=== PATIENT | male | born 1940 | race African-American/Black ===

== ENCOUNTER 2016-09-05 17:40 | Emergency (ER) | payer BC ==
[~2016-09-05] VITALS: Ht 175.3 cm; Wt 106.6 kg
[2016-09-05 18:55] VITALS: BP 154/72
--- NOTE | 2016-09-05 19:45 | ED.ADGEN ---
Past Medical History Past Medical History: CVA, High Cholesterol, Hypertension, Prostatitis, TIA, Other Additional Past Medical Histor: kidney disease Past Surgical History: Tonsillectomy, Other Additional Past Surgical Histo: fx arm Alcohol Use: Occasionally Drug Use: None Adult General Chief Complaint Chief Complaint: NOSEBLEED HPI HPI Patient is a 75 year old male with known coronary disease currently on Plavix who presents with intermittent right sided nosebleed for the past 5 hours. Bleeding is currently resolved. Patient has had head cold, nasal congestion with rhinorrhea and has been rubbing his nose the past 3 days. Blood pressure is controlled. Patient last took Plavix this morning. No other acute symptoms or complaints. No other bleeding complaints. Review of Systems Review of Systems Review symptoms as per history of present illness. All other review symptoms are negative. Allergies Allergies Allergies Coded Allergies Type Severity Reaction Last Updated Verified No Known Drug Allergies 09/19/14 No Physical Exam Physical Exam Constitutional: Well developed, well nourished. HENT: Normocephalic, atraumatic, bilateral external ears normal, oropharynx moist, no oral exudates, nose, no active bleeding, mucosal irritation, right nasal abrasion. Eyes: PERRL. Neck: Normal range of motion, no tenderness. Cardiovascular:Heart rate regular rhythm, no murmur. Lungs & Thorax: Bilateral breath sounds clear to auscultation. Abdomen: Bowel sounds normal, soft, no tenderness. Skin: Warm, dry. Back: No tenderness. Extremities: No tenderness. Neurologic: Alert and oriented X 3, normal motor function, normal sensory function, no focal deficits noted. Psychologic: Affect normal, judgement normal, mood normal. Current Patient Data Vital Signs Vital Signs Date Time Temp Pulse Resp B/P (MAP) Pulse Ox O2 Delivery O2 Flow Rate FiO2 09/05/16 18:55 78 17 154/72 (99) 09/05/16 18:25 94 Room Air 09/05/16 18:05 98.4 98.4 EKG EKG [] Radiology/Procedures Radiology/Procedures [] Course & Med Decision Making Course & Med Decision Making Pertinent Labs and Imaging studies reviewed. (See chart for details) [Nosebleed already resolved. Recommend supportive care and watchful waiting.] Dragon Disclaimer Dragon Disclaimer This electronic medical record was generated, in whole or in part, using a voice recognition dictation system. CATALINA LOPEZ DO Sep 05, 2016 19:44
--- NOTE | 2016-09-06 10:13 | EKG ---
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
== END 2016-09-05 19:15 | disposition home or self-care (01) ==
LOC: ER 17:40
DX: R04.0 Epistaxis (principal); R09.81 Nasal congestion; J34.89 Other specified disorders of nose and nasal sinuses; J00 Acute nasopharyngitis [common cold]; I25.10 Atherosclerotic heart disease of native coronary artery without angina pectoris; I10 Essential (primary) hypertension; E78.00 Pure hypercholesterolemia, unspecified; Z86.73 Personal history of transient ischemic attack (TIA), and cerebral infarction without residual deficits; Z79.02 Long term (current) use of antithrombotics/antiplatelets
CPT/HCPCS: 93005; 99284-25

== ENCOUNTER → 2016-09-05 | Outpatient (CLI) | payer BC ==
[~2016-09-05] MED LIST: AMLO10TA4 PO; AMLO5TAB4 PO; BYSTOLIC10 MG PO; CLOP75TA57 PO; FENO160T PO; FURO20TA3 PO; METO50TA2 PO; Metoprolol Tartrate PO; NICO1PAT21 TP; SIMV5TAB PO; TAMS0.4C2 PO
--- NOTE | 2016-09-05 15:47 | RAD ---
Indication renal dysfunction. Grayscale imaging targeted to the kidneys was performed. The right kidney measures 11.6 x 5.6 x 4.5 cm. No hydronephrosis or mass is seen. The left kidney appears unremarkable showing no evidence of hydronephrosis or mass measuring approximately 10.4 x 3.9 x 3.7 cm. The urinary bladder was not fully distended for this examination. No gross abnormality was seen. There was a small postvoid residual estimated at approximately 25 cc. IMPRESSION: Normal morphologic appearance of the kidneys
[2016-09-05 18:55] VITALS: BP 154/72
== END | disposition home or self-care (01) ==
LOC: US 14:29
PROVIDERS: ATTEND Internal Medicine Nephrology
DX: N18.3 Chronic kidney disease, stage 3 (moderate) (principal)
CPT/HCPCS: 76770

== ENCOUNTER → 2016-09-08 | Outpatient (CLI) | payer BC ==
[2016-09-05 18:55] VITALS: BP 154/72
--- NOTE | 2016-09-08 17:01 | CARD ---
APPROVED REPORT EXAM: Two-dimensional and M-mode echocardiogram with Doppler and color Doppler. Other Information Quality : AverageHR: 75bpm Rhythm : NSR INDICATION Chest Pain Lower extremity edema RISK FACTORS Obesity 2D DIMENSIONS RVDd2.9 (2.9-3.5cm)Left Atrium(2D)4.0 (1.6-4.0cm) IVSd1.0 (0.7-1.1cm)Aortic Root(2D)3.3 (2.0-3.7cm) LVDd4.8 (3.9-5.9cm)LVOT Diameter2.4 (1.8-2.4cm) PWd1.0 (0.7-1.1cm)LVDs3.4 (2.5-4.0cm) FS (%) 30.5 %SV62.8 ml LVEF(%)57.8 (>50%) Aortic Valve AoV Peak Ke[place].102.6cm/sAoV VTI23.2cm AO Peak GR.4.2mmHgLVOT Peak [place].90.3cm/s AO Mean GR.2mmHgAVA (VMAX)4.05cm2 Mitral Valve MV E Iccrnumy97.8cm/sMV E Peak Gr.2mmHg MV DECEL [id number] A Wbiouojv60.3cm/s MV E Mean Gr.1mmHgE/A Ratio0.8 MV A [id number] Pulmonary Valve PV Peak Cbwsdqrk81.6cm/s Pulmonary Vein S1 Oojncjiu42.6cm/sD2 Dihrofqw11.2cm/s PVa [id number] LEFT VENTRICLE The left ventricle is normal size. There is normal left ventricular wall thickness. The left ventricu lar systolic function is normal. The Ejection Fraction is 55-60%. There is normal LV segmental wall m otion. Transmitral Doppler flow pattern is Grade I-abnormal relaxation pattern. RIGHT VENTRICLE The right ventricle is normal size. There is normal right ventricular wall thickness. The right ventr icular systolic function is normal. ATRIA The left atrium size is normal. The right atrium size is normal. The interatrial septum is intact wit h no evidence for an atrial septal defect or patent foramen ovale as noted on 2-D or Doppler imaging. AORTIC VALVE The aortic valve is not well visualized but appears mildly calcified and opens well. Doppler and [place] r Flow revealed no significant aortic regurgitation. There is no significant aortic valvular stenosis . MITRAL VALVE The mitral valve is not well visualized but appears to open well. Mitral annular calcification is mil d. The mitral valve leaflets are thickened. There is no evidence of mitral valve prolapse. There is n o mitral valve stenosis. Doppler and Color Flow revealed trace mitral regurgitation. TRICUSPID VALVE The tricuspid valve is not well visualized. Doppler and Color Flow revealed no tricuspid valve regurg itation noted. Unable to determine pulmonary artery pressure at exam time. PULMONIC VALVE The pulmonary valve is not well visualized but appears to opens well. Doppler and Color Flow revealed no pulmonic valvular regurgitation. There is no pulmonic valvular stenosis by spectral Doppler. GREAT VESSELS The aortic root is normal in size. The ascending aorta is normal in size. The pulmonary artery is not visualized, unable to assess. The IVC is normal in size and collapses >50% with inspiration. PERICARDIAL EFFUSION There is no evidence of significant pericardial effusion. Critical Notification Critical Value: No <Conclusion> The left ventricular systolic function is normal. The Ejection Fraction is 55-60%. There is normal LV segmental wall motion. Transmitral Doppler flow pattern is Grade I-abnormal relaxation pattern. Doppler and Color Flow revealed trace mitral regurgitation. There is no evidence of significant pericardial effusion.
== END | disposition home or self-care (01) ==
LOC: ECHO 08:54
PROVIDERS: ATTEND Internal Medicine Cardiovascular Disease
DX: I34.0 Nonrheumatic mitral (valve) insufficiency (principal); E66.9 Obesity, unspecified; R60.0 Localized edema
CPT/HCPCS: 93306

== ENCOUNTER 2016-12-05 10:55 | Inpatient (IN) | payer BC ==
[~2016-12-05] VITALS: Ht 175.3 cm; Wt 108.0 kg
[~2016-12-05 10:55] MED LIST changes: -METO50TA2 PO; +METO50TA6 PO
[2016-12-05] MEDS ORDERED: ASPIRIN 325 MG TABLET PO ONE (11:15)
[2016-12-05] MEDS ORDERED: FUROSEMIDE 20 MG/2 ML VIAL. IV ONE (11:15)
--- NOTE | 2016-12-05 11:18 | PHYS DOC ---
Past Medical History Past Medical History: CVA, High Cholesterol, Hypertension, Prostatitis, TIA, Other Additional Past Medical Histor: kidney disease Past Surgical History: Tonsillectomy, Other Additional Past Surgical Histo: fx arm Alcohol Use: Occasionally Drug Use: None Adult General Chief Complaint Chief Complaint: LOWER EXTREMITY SWELLING HPI HPI Patient is a 76 year old male with a history of CVA (some residual left sided weakness), HTN, and COPD presents the ED complaining of shortness of breath 1 week. Patient sent to the ED by his PCP. Patient's states he has been sitting up, had increased leg swelling and sleeping in a chair due to difficulty breathing. Rates shortness of breath at 7/10. Complains of shortness of breath, cough, and lower leg swelling. Denies chest pain, headache, dizziness , weakness, nausea/vomiting, abdominal pain, syncope, or fever. States he has not taken his lasix at home this morning. Review of Systems Review of Systems Constitutional: Denies fever or chills [] Eyes: Denies change in visual acuity, redness, or eye pain [] HENT: Denies nasal congestion or sore throat [] Respiratory: Complains of cough and shortness of breath. [] Cardiovascular: No additional information not addressed in HPI [] GI: Denies abdominal pain, nausea, vomiting, bloody stools or diarrhea [] : Denies dysuria or hematuria [] Musculoskeletal: Denies back pain or joint pain [] Integument: Denies rash or skin lesions [] Neurologic: Denies headache, focal weakness or sensory changes [] Endocrine: Denies polyuria or polydipsia [] Current Medications Current Medications Current Medications Medications (Trade) Dose Ordered Sig/Otto Start Time Stop Time Status Last Admin Dose Admin Albuterol/ Ipratropium (Duoneb) 3 ml 1X ONCE 12/05/16 11:30 12/05/16 11:31 DC 12/05/16 12:02 3 ML Aspirin (Iris Aspirin) 325 mg 1X ONCE 12/05/16 11:15 12/05/16 11:16 DC 12/05/16 12:13 325 MG Furosemide (Lasix) 40 mg 1X ONCE 12/05/16 11:15 12/05/16 11:16 DC 12/05/16 12:30 40 MG Allergies Allergies Allergies Coded Allergies Type Severity Reaction Last Updated Verified No Known Drug Allergies 09/19/14 No Physical Exam Physical Exam Constitutional: Well developed, well nourished, no acute distress, non-toxic appearance. [] HENT: Normocephalic, atraumatic, bilateral external ears normal, oropharynx moist, no oral exudates, nose normal. [] Eyes: PERRLA, EOMI, conjunctiva normal, no discharge. [] Neck: Normal range of motion, no tenderness, supple, no stridor. [] Cardiovascular:Heart rate regular rhythm, no murmur [] Lungs & Thorax: Bilateral breath sounds. MILD WHEEZING/CRACKLES BILATERALLY. [] Abdomen: Bowel sounds normal, soft, no tenderness, no masses, no pulsatile masses. [] Skin: Warm, dry, no erythema, no rash. [] Back: No tenderness, no CVA tenderness. [] Extremities: No tenderness, no cyanosis, no clubbing, ROM intact, 2+ BILATERAL LOWER LEG EDEMA. LEFT LOWER LEG SUPERFICIAL BLISTER. [] Neurologic: Alert and oriented X 3, normal motor function, normal sensory function, no focal deficits noted. [] Psychologic: Affect normal, judgement normal, mood normal. [] Current Patient Data Vital Signs Vital Signs Date Time Temp Pulse Resp B/P (MAP) Pulse Ox O2 Delivery O2 Flow Rate FiO2 12/05/16 12:34 79 25 207/91 (129) 92 Nasal Cannula 2.0 12/05/16 11:20 98.7 98.7 Lab Values Laboratory Tests Test 12/05/16 12:30 White Blood Count 8.9 x10^3/uL (4.0-11.0) Red Blood Count 4.34 x10^6/uL (4.30-5.70) Hemoglobin 12.3 g/dL (13.0-17.5) L Hematocrit 38.5 % (39.0-53.0) L Mean Corpuscular Volume 89 fL (79-100) Mean Corpuscular Hemoglobin 28 pg (25-35) Mean Corpuscular Hemoglobin Concent 32 g/dL (31-37) Red Cell Distribution Width 14.6 % (11.5-14.5) H Platelet Count 243 x10^3/uL (140-400) Neutrophils (%) (Auto) 74 % (31-73) H Lymphocytes (%) (Auto) 13 % (24-48) L Monocytes (%) (Auto) 10 % (0-9) H Eosinophils (%) (Auto) 2 % (0-3) Basophils (%) (Auto) 1 % (0-3) Neutrophils # (Auto) 6.6 x10^3uL (1.8-7.7) Lymphocytes # (Auto) 1.2 x10^3/uL (1.0-4.8) Monocytes # (Auto) 0.9 x10^3/uL (0.0-1.1) Eosinophils # (Auto) 0.2 x10^3/uL (0.0-0.7) Basophils # (Auto) 0.1 x10^3/uL (0.0-0.2) Prothrombin Time 13.4 SEC (11.7-14.0) Prothrombin Time INR 1.1 (0.8-1.1) Sodium Level 145 mmol/L (136-145) Potassium Level 4.7 mmol/L (3.5-5.1) Chloride Level 108 mmol/L (98-107) H Carbon Dioxide Level 29 mmol/L (21-32) Anion Gap 8 (6-14) Blood Urea Nitrogen 24 mg/dL (8-26) Creatinine 1.6 mg/dL (0.7-1.3) H Estimated GFR (Cockcroft-Gault) 51.1 Glucose Level 108 mg/dL (70-99) H Calcium Level 9.0 mg/dL (8.5-10.1) Total Bilirubin 1.0 mg/dL (0.2-1.0) Direct Bilirubin 0.2 mg/dL (0.0-0.2) Aspartate Amino Transferase (AST) 13 U/L (15-37) L Alanine Aminotransferase (ALT) 19 U/L (16-63) Alkaline Phosphatase 96 U/L (46-116) Creatine Kinase 110 U/L (39-308) Creatine Kinase MB (Mass) 1.3 ng/mL (0.0-3.6) Creatine Kinase MB Relative Index 1.2 % (0-4) Troponin I Quantitative < 0.017 ng/mL (0.000-0.055) RY-Arx-G-Type Natriuretic Peptide 87 pg/mL (0-449) Total Protein 7.3 g/dL (6.4-8.2) Albumin 3.6 g/dL (3.4-5.0) Triglycerides Level 97 mg/dL (0-150) Cholesterol Level 85 mg/dL (0-200) LDL Cholesterol, Calculated 36 mg/dL (0-100) VLDL Cholesterol, Calculated 19 mg/dL (0-40) Non-HDL Cholesterol Calculated 55 mg/dL (0-129) HDL Cholesterol 30 mg/dL (40-60) L Cholesterol/HDL Ratio 2.8 Lipase 215 U/L (73-393) Thyroid Stimulating Hormone (TSH) 0.564 uIU/mL (0.358-3.74) Free Thyroxine 1.11 ng/dL (0.76-1.46) Free Triiodothyronine (T3) pg/mL 2.38 pg/mL (2.18-3.98) Laboratory Tests 12/05/16 12:30 Laboratory Tests 12/05/16 12:30 EKG EKG [] Radiology/Procedures Radiology/Procedures PROCEDURE: PORTABLE CHEST 1V Chest x-ray Indication: Short of breath, swelling and blisters on his legs. Technique: Portable AP upright chest x-ray Comparison: Previous chest x-ray from 05/24/2015 Findings: Heart is top normal in size. Mild diffuse peribronchial wall thickening. No pneumothorax or pleural effusion. Visualized bony thorax is within normal limits. Impression: Mild bilateral peribronchial wall thickening may suggest viral or atypical pneumonia. Clinically correlate.[] PROCEDURE: VENOUS LOWER EXT BILATERAL Ultrasound venous Doppler lower extremities Indication: Bilateral leg swelling Technique: Grayscale, Doppler and spectral waveform images of the bilateral lower extremity deep veins. Comparison: Previous study from 03/27/2015. Findings: The bilateral lower extremity deep veins are compressible and demonstrate respiratory variation with response to augmentation on Doppler images. Diffuse bilateral soft tissue edema. Impression: No sonographic evidence of acute DVT of the interrogated bilateral lower extremity deep veins. Course & Med Decision Making Course & Med Decision Making Pertinent Labs and Imaging studies reviewed. (See chart for details) []Discussed case with airport ramp supervisor PA for Dr. Ordonez and Dr. La, Data Processing Systems Project Planner. Will consult and see patient. Dr. Barnett agrees to admission and further management of patient. Patient stable for admission. Family at bedside. Dragon Disclaimer Dragon Disclaimer This electronic medical record was generated, in whole or in part, using a voice recognition dictation system. Departure Departure Impression: Primary Impression: COPD exacerbation Additional Impression: CAP (community acquired pneumonia) Disposition: 09 ADMITTED INPATIENT Admitting Physician: Roge Pierce Condition: STABLE Referrals: WILLA KING DO (PCP) Problem Qualifiers ZACK OZUNA Dec 05, 2016 11:18
--- NOTE | 2016-12-05 11:28 | EKG ---
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
[2016-12-05] MEDS ORDERED: IPRATRPIUM/ALBUTEROL 0.5/2.5MG 3 ML NEBU. NEB ONE (11:30)
--- NOTE | 2016-12-05 11:35 | RAD ---
Chest x-ray Indication: Short of breath, swelling and blisters on his legs. Technique: Portable AP upright chest x-ray Comparison: Previous chest x-ray from 05/24/2015 Findings: Heart is top normal in size. Mild diffuse peribronchial wall thickening. No pneumothorax or pleural effusion. Visualized bony thorax is within normal limits. Impression: Mild bilateral peribronchial wall thickening may suggest viral or atypical pneumonia. Clinically correlate.
--- NOTE | 2016-12-05 12:13 | RAD ---
Ultrasound venous Doppler lower extremities Indication: Bilateral leg swelling Technique: Grayscale, Doppler and spectral waveform images of the bilateral lower extremity deep veins. Comparison: Previous study from 03/27/2015. Findings: The bilateral lower extremity deep veins are compressible and demonstrate respiratory variation with response to augmentation on Doppler images. Diffuse bilateral soft tissue edema. Impression: No sonographic evidence of acute DVT of the interrogated bilateral lower extremity deep veins.
[2016-12-05 12:34] LABS: BASO # 0.1 x10^3/uL (0.0-0.2); BASO % 1 % (0-3); EOS % 2 % (0-3); HEMATOCRIT 38.5 % (39.0-53.0); HEMOGLOBIN 12.3 g/dL (13.0-17.5); LYMPH # 1.2 x10^3/uL (1.0-4.8); LYMPH % 13 % (24-48); MEAN CORPUSCULAR HEMOGLOBIN 28 pg (25-35); MEAN CORPUSCULAR HGB CONC 32 g/dL (31-37); MEAN CORPUSCULAR VOLUME 89 fL (79-100); MONO % 10 % (0-9); NEUT % 74 % (31-73); PLATELET COUNT 243 x10^3/uL (140-400); RED BLOOD COUNT 4.34 x10^6/uL (4.30-5.70); RED CELL DISTRIBUTION WIDTH 14.6 % (11.5-14.5); WHITE BLOOD COUNT 8.9 x10^3/uL (4.0-11.0)
[2016-12-05 12:48] LABS: INR 1.1 (0.8-1.1); PROTHROMBIN TIME PATIENT 13.4 SEC (11.7-14.0)
[2016-12-05 12:51] LABS: CREATININE 1.6 mg/dL (0.7-1.3); GFR 51.1; POTASSIUM 4.7 mmol/L (3.5-5.1)
[2016-12-05 12:57] LABS: CKMB MASS 1.3 ng/mL (0.0-3.6)
[2016-12-05 12:58] LABS: ALBUMIN 3.6 g/dL (3.4-5.0); DIRECT BILIRUBIN 0.2 mg/dL (0.0-0.2); TOTAL PROTEIN 7.3 g/dL (6.4-8.2)
[2016-12-05] MEDS ORDERED: DOXYCYCLINE HYCLATE 100 MG in IV DEXTROSE 5% 100 ML IV ONE (13:00)
[2016-12-05 13:15] LABS: BILIRUBIN,URINE NEGATIVE (NEG); GLUCOSE,URINE NEGATIVE (NEG); NITRITE,URINE NEGATIVE (NEG); PH,URINE 6.5; PROTEIN,URINE NEGATIVE (NEG-TRACE); UROBILINOGEN,URINE 0.2 mg/dL (0.2 mg/dL)
[2016-12-05 13:22] LABS: BACTERIA,URINE 0 /HPF (0-FEW); RBC,URINE 0 /HPF (0-2); SQUAMOUS EPITHELIAL CELL,UR OCC /LPF; WBC,URINE 0 /HPF (0-4)
[2016-12-05] MEDS ORDERED: LABETALOL 20 MG/4 ML DISP.SYRIN. IVP PRN (14:30)
--- NOTE | 2016-12-05 14:37 | PDOC2 ---
MARIELLA SHULTZ CHIEF CRNA 12/05/16 1437: CARDIAC CONSULT DATE OF CONSULT Date of Consult DATE: 12/05/16 TIME: 14:24 REASON FOR CONSULT Reason for Consult: CHF REFERRING PHYSICIAN Referring Physician: Teetee SOURCE Source: Chart review, Patient HISTORY OF PRESENT ILLNESS HISTORY OF PRESENT ILLNESS This is a pleasant 76 yo male admitted for complains of leg swelling and some SOA This SOA has been occurring for a 1 week. He has been sleeping sitting up but not necessarily SOA. Accdg to he has been able to lay flat without at home. He is just more comfortable when sitting up. Denies any CP, palpitations , n/v or diarrhea. Presently laying flat without difficulty. No fever or chills but explained that he has been coughing more. HE continues to smoke tobacco but otherwise he explained that he has been taking his BP meds. His leg swelling is persistent and his LLE is worse. HE has known PAD but has refused intervention in the past. There is a blister that popped to his left stover but no obvious nonhealing wound. He has weakness to his LE which makes it hard to figure if he truly is having activity claudication. Presently bilateral LE are warm and denies any discomfort. He is suppose to use stockings but has not been wearing it. He most likely have COPD and the only med he has is PRN albuterol. PAST MEDICAL HISTORY Cardiovascular: CHF, HTN, Hyperlipidemia, Other (PVD) Pulmonary: COPD CENTRAL NERVOUS SYSTEM: CVA Endocrine: Diabetes (?) PAST SURGICAL HISTORY Past Surgical History: No pertinent history FAMILY HISTORY Family History noncontributory SOCIAL HISTORY Smoke: <1 pack per day ALCOHOL: none Drugs: None Lives: with Family CURRENT MEDICATIONS CURRENT MEDICATIONS Current Medications Medications (Trade) Dose Ordered Sig/Otto Route PRN Reason Start Time Stop Time Status Last Admin Dose Admin Aspirin (Iris Aspirin) 325 mg 1X ONCE PO 12/05/16 11:15 12/05/16 11:16 DC 12/05/16 12:13 Furosemide (Lasix) 40 mg 1X ONCE IV 12/05/16 11:15 12/05/16 11:16 DC 12/05/16 12:30 Albuterol/ Ipratropium (Duoneb) 3 ml 1X ONCE NEB 12/05/16 11:30 12/05/16 11:31 DC 12/05/16 12:02 Ceftriaxone Sodium 50 ml @ 100 mls/hr 1X ONCE IV 12/05/16 13:00 12/05/16 13:29 DC 12/05/16 13:27 Doxycycline Hyclate 100 mg/ Dextrose 100 ml @ 50 mls/hr 1X ONCE IV 12/05/16 13:00 12/05/16 14:59 12/05/16 14:04 ALLERGIES ALLERGIES: Coded Allergies: No Known Drug Allergies (Unverified , 09/19/14) ROS Review of System 14 point ROS evaluated with pertinent positives noted per HPI PHYSICAL EXAM General: Alert, Oriented X3, Cooperative, No acute distress HEENT: Atraumatic, Mucous membr. moist/pink Lungs: Other (diminsihed bases) Heart: Regular rate (SR), Normal S1, Normal S2, Other (distant heart sounds) Abdomen: Soft, No tenderness Extremities: No cyanosis, Other (3-4+ bilateral LE pitting edema) Skin: No breakdown, No significant lesion Neuro: Normal speech, Sensation intact Psych/Mental Status: Mental status NL, Mood NL MUSCULOSKELETAL: Osteoarthritic changes both hands VITALS VITALS Vital Signs Date Time Temp Pulse Resp B/P (MAP) Pulse Ox O2 Delivery O2 Flow Rate FiO2 12/05/16 12:02 96 Room Air 12/05/16 11:20 98.7 73 24 206/86 (126) 98.7 LABS Lab: Laboratory Tests Test 12/05/16 12:30 12/05/16 13:05 White Blood Count 8.9 x10^3/uL (4.0-11.0) Red Blood Count 4.34 x10^6/uL (4.30-5.70) Hemoglobin 12.3 g/dL (13.0-17.5) Hematocrit 38.5 % (39.0-53.0) Mean Corpuscular Volume 89 fL (79-100) Mean Corpuscular Hemoglobin 28 pg (25-35) Mean Corpuscular Hemoglobin Concent 32 g/dL (31-37) Red Cell Distribution Width 14.6 % (11.5-14.5) Platelet Count 243 x10^3/uL (140-400) Neutrophils (%) (Auto) 74 % (31-73) Lymphocytes (%) (Auto) 13 % (24-48) Monocytes (%) (Auto) 10 % (0-9) Eosinophils (%) (Auto) 2 % (0-3) Basophils (%) (Auto) 1 % (0-3) Neutrophils # (Auto) 6.6 x10^3uL (1.8-7.7) Lymphocytes # (Auto) 1.2 x10^3/uL (1.0-4.8) Monocytes # (Auto) 0.9 x10^3/uL (0.0-1.1) Eosinophils # (Auto) 0.2 x10^3/uL (0.0-0.7) Basophils # (Auto) 0.1 x10^3/uL (0.0-0.2) Prothrombin Time 13.4 SEC (11.7-14.0) Prothromb Time International Ratio 1.1 (0.8-1.1) Sodium Level 145 mmol/L (136-145) Potassium Level 4.7 mmol/L (3.5-5.1) Chloride Level 108 mmol/L (98-107) Carbon Dioxide Level 29 mmol/L (21-32) Anion Gap 8 (6-14) Blood Urea Nitrogen 24 mg/dL (8-26) Creatinine 1.6 mg/dL (0.7-1.3) Estimated GFR (Cockcroft-Gault) 51.1 Glucose Level 108 mg/dL (70-99) Calcium Level 9.0 mg/dL (8.5-10.1) Total Bilirubin 1.0 mg/dL (0.2-1.0) Direct Bilirubin 0.2 mg/dL (0.0-0.2) Aspartate Amino Transf (AST/SGOT) 13 U/L (15-37) Alanine Aminotransferase (ALT/SGPT) 19 U/L (16-63) Alkaline Phosphatase 96 U/L (46-116) Creatine Kinase 110 U/L (39-308) Creatine Kinase MB (Mass) 1.3 ng/mL (0.0-3.6) Creatine Kinase MB Relative Index 1.2 % (0-4) Troponin I Quantitative < 0.017 ng/mL (0.000-0.055) KF-Mkk-T-Type Natriuretic Peptide 87 pg/mL (0-449) Total Protein 7.3 g/dL (6.4-8.2) Albumin 3.6 g/dL (3.4-5.0) Lipase 215 U/L (73-393) Urine Collection Type Unknown Urine Color Yellow Urine Clarity Cloudy Urine pH 6.5 Urine Specific [place] 1.010 Urine Protein Negative mg/dL (NEG-TRACE) Urine Glucose (UA) Negative mg/dL (NEG) Urine Ketones (Stick) Negative mg/dL (NEG) Urine Blood Negative (NEG) Urine Nitrite Negative (NEG) Urine Bilirubin Negative (NEG) Urine Urobilinogen Dipstick 0.2 mg/dL (0.2 mg/dL) Urine Leukocyte Esterase Negative (NEG) Urine RBC 0 /HPF (0-2) Urine WBC 0 /HPF (0-4) Urine Squamous Epithelial Cells Occ /LPF Urine Bacteria 0 /HPF (0-FEW) Urine Hyaline Casts Occasional /HPF ECHOCARDIOGRAM ECHOCARDIOGRAM Conclusion> The left ventricular systolic function is normal. The Ejection Fraction is 55-60%. There is normal LV segmental wall motion. Transmitral Doppler flow pattern is Grade I-abnormal relaxation pattern. Doppler and Color Flow revealed trace mitral regurgitation. There is no evidence of significant pericardial effusion. DICTATED and SIGNED BY: GARO WHITLOCK MD DATE: 09/08/16 1700 ASSESSMENT/PLAN ASSESSMENT/PLAN 1. AECOPD: atypical pneumonia? per PCP 2. Accelerated HTN: has not taken his meds today. 3. PVD: refused intervention in the past. Neurovascular status are intact 4. Tobaccoism 5. Suspect chronic lymphedema: no acute CHF pro NT BNP 87 and no vascular congestion 6. Hx of CVA 7. Hx of noncompliance 8. Hx of Subclinical hyperthyroidism Recommendation 1. Consult lymphedema specialist 2. Continue with home BP regimen. Labetolol PRN 3. Smoking cessation. 4. Continue with secondary prevention Problems: MIYA COOLEY MD 12/06/16 0222: CARDIAC CONSULT ALLERGIES ALLERGIES: Coded Allergies: No Known Drug Allergies (Unverified , 09/19/14) ASSESSMENT/PLAN ASSESSMENT/PLAN Late entry for 12/05 Pt. seen and examined. Agree with above CENTER MEDICAL AND LAB DIRECTOR NOTE. 76 y.o well known to our service presenting with LE venous stasis wounds Has arterial insufficiency. I discussed with him and his daughter that HF is not likely a cause given his low BNP and normal EF> He will need aggressive mgmt with wound care, compression therapy. Ultimately, may need to revisit his needs for arterial revascularization but he has no clear tissue loss or gangrene at this time and unfortunately continues to smoke. Will follow Lasix given inER. Problems: MARIELLA SHULTZ APRN Dec 05, 2016 14:37 MIYA COOLEY MD Dec 06, 2016 02:22
[2016-12-05 15:24] LABS: CHOLESTEROL/HDL RATIO 2.8
[2016-12-05 15:30] VITALS: BP 156/83
[2016-12-05] MEDS ORDERED: traMADol 50 MG TABLET PO PRN (15:30)
[2016-12-05] MEDS ORDERED: DOCUSATE SODIUM 100 MG CAPSULE. PO PRN (15:30)
[2016-12-05] MEDS ORDERED: MORPHINE SULFATE 4 MG/ML DISP.SYRIN. IV PRN (15:30)
[2016-12-05] MEDS ORDERED: ACETAMINOPHEN 325 MG TABLET. PO PRN (15:30)
[2016-12-05] MEDS ORDERED: hydrALAZINE 20 MG/ML VIAL. IVP PRN (15:30)
[2016-12-05] MEDS ORDERED: ONDANSETRON PF 4 MG/2 ML VIAL. IV PRN (15:30)
[2016-12-05 15:35] LABS: FREE T4 1.11 ng/dL (0.76-1.46)
--- NOTE | 2016-12-05 15:37 | PDOC1 ---
History and Physical Date of Admission Date of Admission 12/05/16 Identification/Chief Complaint Chief Complaint sob, bl leg edema Problems: Source Source: Caregiver, Chart review, Patient History of Present Illness History of Present Illness HPI HPI Patient is a 76 year old male with a history of HTN presents the ED complaining of shortness of breath and bl leg edema x2 months. pt is a heavy smoker, never diagnosed with COPD, on albuterol prn tho at home , no home o2, feels chronic cough with some sputum, feels sob, worse with exertion. He also has 2 months bl leg edema after saw card about 2 months ago, last Echo EF 55%, grade I diastolic dysfunction. Denies chest pain, fever, chills, N/V, diarrhea. noticed left leg has a blister which is broken , went to PCP today, was sent here. Past Medical History Cardiovascular: CHF, HTN, Hyperlipidemia, Other (PVD) CENTRAL NERVOUS SYSTEM: CVA Renal/: Benign prostatic enlarg. Past Surgical History Past Surgical History: No pertinent history Family History Family History: Hypertension Social History Smoke: 1 pack per day ALCOHOL: none Drugs: None Current Medications Current Medications Current Medications Medications (Trade) Dose Ordered Sig/Otto Start Time Stop Time Status Last Admin Dose Admin Albuterol/ Ipratropium (Duoneb) 3 ml 1X ONCE 12/05/16 11:30 12/05/16 11:31 DC 12/05/16 12:02 3 ML Amlodipine Besylate (Norvasc) 5 mg DAILY 12/06/16 09:00 Aspirin (Iris Aspirin) 325 mg 1X ONCE 12/05/16 11:15 12/05/16 11:16 DC 12/05/16 12:13 325 MG Atorvastatin Calcium (Lipitor) 40 mg QHS 12/05/16 21:00 Ceftriaxone Sodium 50 ml @ 100 mls/hr 1X ONCE 12/05/16 13:00 12/05/16 13:29 DC 12/05/16 13:27 100 MLS/HR Clopidogrel Bisulfate (Plavix) 75 mg DAILYWBKFT 12/06/16 08:00 Doxycycline Hyclate 100 mg/ Dextrose 100 ml @ 50 mls/hr 1X ONCE 12/05/16 13:00 12/05/16 14:59 DC 12/05/16 14:04 50 MLS/HR Furosemide (Lasix) 40 mg 1X ONCE 12/05/16 11:15 12/05/16 11:16 DC 12/05/16 12:30 40 MG Labetalol HCl (Normodyne) 20 mg PRN Q2HR PRN 12/05/16 14:30 12/05/16 15:00 20 MG Lisinopril (Prinivil) 5 mg DAILY 12/06/16 09:00 Metoprolol Tartrate (Lopressor) 50 mg BID 12/05/16 21:00 Allergies Allergies Allergies Coded Allergies Type Severity Reaction Last Updated Verified No Known Drug Allergies 09/19/14 No ROS Review of System CONSTITUTIONAL: No fever or chills EYES: No recent changes SKIN: No rash or itching CARDIOVASCULAR: No chest pain, syncope, palpitations, or edema RESPIRATORY: No SOB or cough GASTROINTESTINAL: No nausea, vomiting or abdominal pain NEUROLOGICAL: No headaches or weakness ENDOCRINE: No cold or heat intolerance GENITOURINARY: No urgency or frequency of urination MUSCULOSKELETAL: No back pain or joint pain LYMPHATICS: No enlarged lymph nodes PSYCHIATRIC: No anxiety or depression Physical Exam Physical Exam GEN.: No apparent distress. Alert and oriented. HEENT: Head is normocephalic, atraumatic NECK: Supple. LUNGS: bl mild wheezing and mild crackles HEART: RRR, S1, S2 present. Peripheral pulses intact ABDOMEN: Soft, nontender. Positive bowel sounds. EXTREMITIES: Without any cyanosis. bl leg 2+ edema, left leg has a superficial wound with the broken blister NEUROLOGIC: Normal speech, normal tone PSYCHIATRIC: Normal affect, normal mood. SKIN: No ulcerations Vitals Vitals Vital Signs Date Time Temp Pulse Resp B/P (MAP) Pulse Ox O2 Delivery O2 Flow Rate FiO2 12/05/16 15:00 90 185/77 12/05/16 14:57 24 97 Nasal Cannula 2.0 12/05/16 11:20 98.7 98.7 Labs Labs Laboratory Tests Test 12/05/16 12:30 12/05/16 13:05 White Blood Count 8.9 x10^3/uL (4.0-11.0) Red Blood Count 4.34 x10^6/uL (4.30-5.70) Hemoglobin 12.3 g/dL (13.0-17.5) Hematocrit 38.5 % (39.0-53.0) Mean Corpuscular Volume 89 fL (79-100) Mean Corpuscular Hemoglobin 28 pg (25-35) Mean Corpuscular Hemoglobin Concent 32 g/dL (31-37) Red Cell Distribution Width 14.6 % (11.5-14.5) Platelet Count 243 x10^3/uL (140-400) Neutrophils (%) (Auto) 74 % (31-73) Lymphocytes (%) (Auto) 13 % (24-48) Monocytes (%) (Auto) 10 % (0-9) Eosinophils (%) (Auto) 2 % (0-3) Basophils (%) (Auto) 1 % (0-3) Neutrophils # (Auto) 6.6 x10^3uL (1.8-7.7) Lymphocytes # (Auto) 1.2 x10^3/uL (1.0-4.8) Monocytes # (Auto) 0.9 x10^3/uL (0.0-1.1) Eosinophils # (Auto) 0.2 x10^3/uL (0.0-0.7) Basophils # (Auto) 0.1 x10^3/uL (0.0-0.2) Prothrombin Time 13.4 SEC (11.7-14.0) Prothromb Time International Ratio 1.1 (0.8-1.1) Sodium Level 145 mmol/L (136-145) Potassium Level 4.7 mmol/L (3.5-5.1) Chloride Level 108 mmol/L (98-107) Carbon Dioxide Level 29 mmol/L (21-32) Anion Gap 8 (6-14) Blood Urea Nitrogen 24 mg/dL (8-26) Creatinine 1.6 mg/dL (0.7-1.3) Estimated GFR (Cockcroft-Gault) 51.1 Glucose Level 108 mg/dL (70-99) Calcium Level 9.0 mg/dL (8.5-10.1) Total Bilirubin 1.0 mg/dL (0.2-1.0) Direct Bilirubin 0.2 mg/dL (0.0-0.2) Aspartate Amino Transf (AST/SGOT) 13 U/L (15-37) Alanine Aminotransferase (ALT/SGPT) 19 U/L (16-63) Alkaline Phosphatase 96 U/L (46-116) Creatine Kinase 110 U/L (39-308) Creatine Kinase MB (Mass) 1.3 ng/mL (0.0-3.6) Creatine Kinase MB Relative Index 1.2 % (0-4) Troponin I Quantitative < 0.017 ng/mL (0.000-0.055) IT-Wdz-P-Type Natriuretic Peptide 87 pg/mL (0-449) Total Protein 7.3 g/dL (6.4-8.2) Albumin 3.6 g/dL (3.4-5.0) Triglycerides Level 97 mg/dL (0-150) Cholesterol Level 85 mg/dL (0-200) LDL Cholesterol, Calculated 36 mg/dL (0-100) VLDL Cholesterol, Calculated 19 mg/dL (0-40) Non-HDL Cholesterol Calculated 55 mg/dL (0-129) HDL Cholesterol 30 mg/dL (40-60) Cholesterol/HDL Ratio 2.8 Lipase 215 U/L (73-393) Urine Collection Type Unknown Urine Color Yellow Urine Clarity Cloudy Urine pH 6.5 Urine Specific [place] 1.010 Urine Protein Negative mg/dL (NEG-TRACE) Urine Glucose (UA) Negative mg/dL (NEG) Urine Ketones (Stick) Negative mg/dL (NEG) Urine Blood Negative (NEG) Urine Nitrite Negative (NEG) Urine Bilirubin Negative (NEG) Urine Urobilinogen Dipstick 0.2 mg/dL (0.2 mg/dL) Urine Leukocyte Esterase Negative (NEG) Urine RBC 0 /HPF (0-2) Urine WBC 0 /HPF (0-4) Urine Squamous Epithelial Cells Occ /LPF Urine Bacteria 0 /HPF (0-FEW) Urine Hyaline Casts Occasional /HPF Laboratory Tests Test 12/05/16 12:30 12/05/16 13:05 White Blood Count 8.9 x10^3/uL (4.0-11.0) Red Blood Count 4.34 x10^6/uL (4.30-5.70) Hemoglobin 12.3 g/dL (13.0-17.5) Hematocrit 38.5 % (39.0-53.0) Mean Corpuscular Volume 89 fL (79-100) Mean Corpuscular Hemoglobin 28 pg (25-35) Mean Corpuscular Hemoglobin Concent 32 g/dL (31-37) Red Cell Distribution Width 14.6 % (11.5-14.5) Platelet Count 243 x10^3/uL (140-400) Neutrophils (%) (Auto) 74 % (31-73) Lymphocytes (%) (Auto) 13 % (24-48) Monocytes (%) (Auto) 10 % (0-9) Eosinophils (%) (Auto) 2 % (0-3) Basophils (%) (Auto) 1 % (0-3) Neutrophils # (Auto) 6.6 x10^3uL (1.8-7.7) Lymphocytes # (Auto) 1.2 x10^3/uL (1.0-4.8) Monocytes # (Auto) 0.9 x10^3/uL (0.0-1.1) Eosinophils # (Auto) 0.2 x10^3/uL (0.0-0.7) Basophils # (Auto) 0.1 x10^3/uL (0.0-0.2) Prothrombin Time 13.4 SEC (11.7-14.0) Prothromb Time International Ratio 1.1 (0.8-1.1) Sodium Level 145 mmol/L (136-145) Potassium Level 4.7 mmol/L (3.5-5.1) Chloride Level 108 mmol/L (98-107) Carbon Dioxide Level 29 mmol/L (21-32) Anion Gap 8 (6-14) Blood Urea Nitrogen 24 mg/dL (8-26) Creatinine 1.6 mg/dL (0.7-1.3) Estimated GFR (Cockcroft-Gault) 51.1 Glucose Level 108 mg/dL (70-99) Calcium Level 9.0 mg/dL (8.5-10.1) Total Bilirubin 1.0 mg/dL (0.2-1.0) Direct Bilirubin 0.2 mg/dL (0.0-0.2) Aspartate Amino Transf (AST/SGOT) 13 U/L (15-37) Alanine Aminotransferase (ALT/SGPT) 19 U/L (16-63) Alkaline Phosphatase 96 U/L (46-116) Creatine Kinase 110 U/L (39-308) Creatine Kinase MB (Mass) 1.3 ng/mL (0.0-3.6) Creatine Kinase MB Relative Index 1.2 % (0-4) Troponin I Quantitative < 0.017 ng/mL (0.000-0.055) QJ-Fcp-G-Type Natriuretic Peptide 87 pg/mL (0-449) Total Protein 7.3 g/dL (6.4-8.2) Albumin 3.6 g/dL (3.4-5.0) Triglycerides Level 97 mg/dL (0-150) Cholesterol Level 85 mg/dL (0-200) LDL Cholesterol, Calculated 36 mg/dL (0-100) VLDL Cholesterol, Calculated 19 mg/dL (0-40) Non-HDL Cholesterol Calculated 55 mg/dL (0-129) HDL Cholesterol 30 mg/dL (40-60) Cholesterol/HDL Ratio 2.8 Lipase 215 U/L (73-393) Urine Collection Type Unknown Urine Color Yellow Urine Clarity Cloudy Urine pH 6.5 Urine Specific [place] 1.010 Urine Protein Negative mg/dL (NEG-TRACE) Urine Glucose (UA) Negative mg/dL (NEG) Urine Ketones (Stick) Negative mg/dL (NEG) Urine Blood Negative (NEG) Urine Nitrite Negative (NEG) Urine Bilirubin Negative (NEG) Urine Urobilinogen Dipstick 0.2 mg/dL (0.2 mg/dL) Urine Leukocyte Esterase Negative (NEG) Urine RBC 0 /HPF (0-2) Urine WBC 0 /HPF (0-4) Urine Squamous Epithelial Cells Occ /LPF Urine Bacteria 0 /HPF (0-FEW) Urine Hyaline Casts Occasional /HPF VTE Prophylaxis Ordered VTE Prophylaxis Devices: Yes VTE Pharmacological Prophylaxi: Yes Assessment/Plan Assessment/Plan dyspnea, with COPD, acute on chronic mild diastolic CHF exacerbation likely COPD with smoking grade 1 diastolic CHF HTN urgency hld h/o CVA with mild left side weakness 05/2015 bl leg edema with chf and PVD denies DM CKD3 tobaccoism morbid obesity plan: dvt neg from duplex fu with pulm , card got doxy, ceftriaxone in ER, lasix 40mg iv x1 in er duoneb , cough meds weight daily, in and output cont home meds, may need cont diuretics elevate leg wound care dvt ppx PTOT admit 2nights KIM ARAUJO MD Dec 05, 2016 15:37
[2016-12-05] MEDS ORDERED: ALBUTEROL SULFATE 2.5 MG/3 ML NEBU. NEB PRN (15:45)
[2016-12-05] MEDS: IPRATRPIUM/ALBUTEROL 0.5/2.5MG 3 ML NEBU. NEB SCH ×2 (16:00→19:30)
[2016-12-05] MEDS ORDERED: FLU VACC QS2017-18 (36MOS+)/PF 0.5 ML SYRINGE. VAX IM ONE (17:00)
[2016-12-05 19:00] VITALS: BP 154/80
[2016-12-05] MEDS ORDERED: METOPROLOL TART IMMED RELEASE 50 MG TABLET. PO SCH (21:00)
[2016-12-05] MEDS: ATORVASTATIN CALCIUM 40 MG TABLET. PO SCH (21:12)
[2016-12-05] MEDS: METOPROLOL TART IMMED RELEASE 50 MG TABLET. PO SCH (21:13)
[2016-12-05] MEDS: SIMVASTATIN 10 MG TABLET PO SCH (21:13)
[2016-12-05] MEDS: HEPARIN PF for SUB-Q USE 5,000 UNIT/0.5 ML VIAL. SQ SCH (21:20)
[2016-12-05 23:00] VITALS: BP 155/89
[2016-12-06 03:12] VITALS: BP 158/89
[2016-12-06 04:29] LABS: BASO % 1 % (0-3); EOS % 3 % (0-3); HEMATOCRIT 35.7 % (39.0-53.0); HEMOGLOBIN 11.9 g/dL (13.0-17.5); LYMPH % 14 % (24-48); MEAN CORPUSCULAR HEMOGLOBIN 28 pg (25-35); MEAN CORPUSCULAR HGB CONC 33 g/dL (31-37); MEAN CORPUSCULAR VOLUME 86 fL (79-100); MONO % 10 % (0-9); NEUT % 74 % (31-73); PLATELET COUNT 244 x10^3/uL (140-400); RED BLOOD COUNT 4.18 x10^6/uL (4.30-5.70); RED CELL DISTRIBUTION WIDTH 14.5 % (11.5-14.5); WHITE BLOOD COUNT 7.2 x10^3/uL (4.0-11.0)
[2016-12-06 04:37] LABS: CALCIUM 8.5 mg/dL (8.5-10.1); CREATININE 1.6 mg/dL (0.7-1.3); GFR 51.1; POTASSIUM 4.1 mmol/L (3.5-5.1)
[2016-12-06] MEDS: HEPARIN PF for SUB-Q USE 5,000 UNIT/0.5 ML VIAL. SQ SCH ×3 (05:51→22:36)
[2016-12-06] MEDS: IPRATRPIUM/ALBUTEROL 0.5/2.5MG 3 ML NEBU. NEB SCH ×4 (07:12→19:12)
[2016-12-06 07:15] VITALS: BP 157/71
[2016-12-06] MEDS ORDERED: CLOPIDOGREL BISULFATE 75 MG TABLET PO SCH (08:00)
[2016-12-06] MEDS ORDERED: amLODIPine BESYLATE 10 MG TABLET PO SCH (09:00)
[2016-12-06] MEDS: TAMSULOSIN 0.4 MG CAP.ER.24H. PO SCH (09:57)
[2016-12-06] MEDS: FENOFIBRATE,MICRONIZED 134 MG CAPSULE PO SCH (09:58)
[2016-12-06] MEDS: METOPROLOL TART IMMED RELEASE 50 MG TABLET. PO SCH ×2 (09:58→20:53)
[2016-12-06] MEDS: amLODIPine BESYLATE 5 MG TABLET PO SCH (09:58)
[2016-12-06] MEDS: LISINOPRIL 5 MG TABLET. PO SCH (09:59)
[2016-12-06] MEDS: CLOPIDOGREL BISULFATE 75 MG TABLET PO SCH (09:59)
[2016-12-06 10:30] VITALS: BP 148/70
--- NOTE | 2016-12-06 14:03 | PDOC ---
PROGRESS NOTES Chief Complaint Chief Complaint dyspnea, with COPD, acute on chronic mild diastolic CHF exacerbation likely COPD with smoking grade 1 diastolic CHF HTN urgency hld h/o CVA with mild left side weakness 05/2015 bl leg edema with chf and PVD denies DM CKD3 tobaccoism morbid obesity left leg superficial wound with broken blister SIRS, not sepsis plan: dvt neg from duplex, fu with card got doxy, ceftriaxone in ER, lasix 40mg iv x1 in er duoneb , cough meds weight daily, in and output cont home meds, hold diuretics for now, elevate leg wound care dvt ppx PTOT dc in 1-2ds History of Present Illness History of Present Illness ROS: no fever, chills, sob or chest pain cough better, no need o2 leg edema better Vitals Vitals Vital Signs Date Time Temp Pulse Resp B/P (MAP) Pulse Ox O2 Delivery O2 Flow Rate FiO2 12/06/16 11:29 94 Room Air 12/06/16 10:38 2.0 12/06/16 10:30 99.0 81 18 148/70 (96) 99.0 Physical Exam Physical Exam left leg has a 3cm superficial wound with broken blister General: Alert, Oriented X3, Cooperative, No acute distress Heart: Regular rate (SR), Normal S1, Normal S2, Other (distant heart sounds) Lungs: Clear, Other Abdomen: Normal bowel sounds, Soft, No tenderness Extremities: No cyanosis, Other (3-4+ bilateral LE pitting edema) Skin: No significant lesion Labs LABS Laboratory Tests Test 12/05/16 16:22 12/06/16 03:27 Glucose (Fingerstick) 122 mg/dL (70-99) White Blood Count 7.2 x10^3/uL (4.0-11.0) Red Blood Count 4.18 x10^6/uL (4.30-5.70) Hemoglobin 11.9 g/dL (13.0-17.5) Hematocrit 35.7 % (39.0-53.0) Mean Corpuscular Volume 86 fL (79-100) Mean Corpuscular Hemoglobin 28 pg (25-35) Mean Corpuscular Hemoglobin Concent 33 g/dL (31-37) Red Cell Distribution Width 14.5 % (11.5-14.5) Platelet Count 244 x10^3/uL (140-400) Neutrophils (%) (Auto) 74 % (31-73) Lymphocytes (%) (Auto) 14 % (24-48) Monocytes (%) (Auto) 10 % (0-9) Eosinophils (%) (Auto) 3 % (0-3) Basophils (%) (Auto) 1 % (0-3) Neutrophils # (Auto) 5.3 x10^3uL (1.8-7.7) Lymphocytes # (Auto) 1.0 x10^3/uL (1.0-4.8) Monocytes # (Auto) 0.7 x10^3/uL (0.0-1.1) Eosinophils # (Auto) 0.2 x10^3/uL (0.0-0.7) Basophils # (Auto) 0.0 x10^3/uL (0.0-0.2) Sodium Level 142 mmol/L (136-145) Potassium Level 4.1 mmol/L (3.5-5.1) Chloride Level 105 mmol/L (98-107) Carbon Dioxide Level 29 mmol/L (21-32) Anion Gap 8 (6-14) Blood Urea Nitrogen 24 mg/dL (8-26) Creatinine 1.6 mg/dL (0.7-1.3) Estimated GFR (Cockcroft-Gault) 51.1 Glucose Level 112 mg/dL (70-99) Calcium Level 8.5 mg/dL (8.5-10.1) Comment Review of Relevant I have reviewed the following items jason (where applicable) has been applied. Labs Laboratory Tests Test 12/05/16 12:30 12/05/16 13:05 12/05/16 16:22 12/06/16 03:27 White Blood Count 8.9 x10^3/uL (4.0-11.0) 7.2 x10^3/uL (4.0-11.0) Red Blood Count 4.34 x10^6/uL (4.30-5.70) 4.18 x10^6/uL (4.30-5.70) Hemoglobin 12.3 g/dL (13.0-17.5) 11.9 g/dL (13.0-17.5) Hematocrit 38.5 % (39.0-53.0) 35.7 % (39.0-53.0) Mean Corpuscular Volume 89 fL (79-100) 86 fL (79-100) Mean Corpuscular Hemoglobin 28 pg (25-35) 28 pg (25-35) Mean Corpuscular Hemoglobin Concent 32 g/dL (31-37) 33 g/dL (31-37) Red Cell Distribution Width 14.6 % (11.5-14.5) 14.5 % (11.5-14.5) Platelet Count 243 x10^3/uL (140-400) 244 x10^3/uL (140-400) Neutrophils (%) (Auto) 74 % (31-73) 74 % (31-73) Lymphocytes (%) (Auto) 13 % (24-48) 14 % (24-48) Monocytes (%) (Auto) 10 % (0-9) 10 % (0-9) Eosinophils (%) (Auto) 2 % (0-3) 3 % (0-3) Basophils (%) (Auto) 1 % (0-3) 1 % (0-3) Neutrophils # (Auto) 6.6 x10^3uL (1.8-7.7) 5.3 x10^3uL (1.8-7.7) Lymphocytes # (Auto) 1.2 x10^3/uL (1.0-4.8) 1.0 x10^3/uL (1.0-4.8) Monocytes # (Auto) 0.9 x10^3/uL (0.0-1.1) 0.7 x10^3/uL (0.0-1.1) Eosinophils # (Auto) 0.2 x10^3/uL (0.0-0.7) 0.2 x10^3/uL (0.0-0.7) Basophils # (Auto) 0.1 x10^3/uL (0.0-0.2) 0.0 x10^3/uL (0.0-0.2) Prothrombin Time 13.4 SEC (11.7-14.0) Prothromb Time International Ratio 1.1 (0.8-1.1) Sodium Level 145 mmol/L (136-145) 142 mmol/L (136-145) Potassium Level 4.7 mmol/L (3.5-5.1) 4.1 mmol/L (3.5-5.1) Chloride Level 108 mmol/L (98-107) 105 mmol/L (98-107) Carbon Dioxide Level 29 mmol/L (21-32) 29 mmol/L (21-32) Anion Gap 8 (6-14) 8 (6-14) Blood Urea Nitrogen 24 mg/dL (8-26) 24 mg/dL (8-26) Creatinine 1.6 mg/dL (0.7-1.3) 1.6 mg/dL (0.7-1.3) Estimated GFR (Cockcroft-Gault) 51.1 51.1 Glucose Level 108 mg/dL (70-99) 112 mg/dL (70-99) Calcium Level 9.0 mg/dL (8.5-10.1) 8.5 mg/dL (8.5-10.1) Total Bilirubin 1.0 mg/dL (0.2-1.0) Direct Bilirubin 0.2 mg/dL (0.0-0.2) Aspartate Amino Transf (AST/SGOT) 13 U/L (15-37) Alanine Aminotransferase (ALT/SGPT) 19 U/L (16-63) Alkaline Phosphatase 96 U/L (46-116) Creatine Kinase 110 U/L (39-308) Creatine Kinase MB (Mass) 1.3 ng/mL (0.0-3.6) Creatine Kinase MB Relative Index 1.2 % (0-4) Troponin I Quantitative < 0.017 ng/mL (0.000-0.055) RC-Lyw-A-Type Natriuretic Peptide 87 pg/mL (0-449) Total Protein 7.3 g/dL (6.4-8.2) Albumin 3.6 g/dL (3.4-5.0) Triglycerides Level 97 mg/dL (0-150) Cholesterol Level 85 mg/dL (0-200) LDL Cholesterol, Calculated 36 mg/dL (0-100) VLDL Cholesterol, Calculated 19 mg/dL (0-40) Non-HDL Cholesterol Calculated 55 mg/dL (0-129) HDL Cholesterol 30 mg/dL (40-60) Cholesterol/HDL Ratio 2.8 Lipase 215 U/L (73-393) Thyroid Stimulating Hormone (TSH) 0.564 uIU/mL (0.358-3.74) Free Thyroxine 1.11 ng/dL (0.76-1.46) Free Triiodothyronine (T3) pg/mL 2.38 pg/mL (2.18-3.98) Urine Collection Type Unknown Urine Color Yellow Urine Clarity Cloudy Urine pH 6.5 Urine Specific [place] 1.010 Urine Protein Negative mg/dL (NEG-TRACE) Urine Glucose (UA) Negative mg/dL (NEG) Urine Ketones (Stick) Negative mg/dL (NEG) Urine Blood Negative (NEG) Urine Nitrite Negative (NEG) Urine Bilirubin Negative (NEG) Urine Urobilinogen Dipstick 0.2 mg/dL (0.2 mg/dL) Urine Leukocyte Esterase Negative (NEG) Urine RBC 0 /HPF (0-2) Urine WBC 0 /HPF (0-4) Urine Squamous Epithelial Cells Occ /LPF Urine Bacteria 0 /HPF (0-FEW) Urine Hyaline Casts Occasional /HPF Glucose (Fingerstick) 122 mg/dL (70-99) Laboratory Tests Test 12/05/16 16:22 12/06/16 03:27 Glucose (Fingerstick) 122 mg/dL (70-99) White Blood Count 7.2 x10^3/uL (4.0-11.0) Red Blood Count 4.18 x10^6/uL (4.30-5.70) Hemoglobin 11.9 g/dL (13.0-17.5) Hematocrit 35.7 % (39.0-53.0) Mean Corpuscular Volume 86 fL (79-100) Mean Corpuscular Hemoglobin 28 pg (25-35) Mean Corpuscular Hemoglobin Concent 33 g/dL (31-37) Red Cell Distribution Width 14.5 % (11.5-14.5) Platelet Count 244 x10^3/uL (140-400) Neutrophils (%) (Auto) 74 % (31-73) Lymphocytes (%) (Auto) 14 % (24-48) Monocytes (%) (Auto) 10 % (0-9) Eosinophils (%) (Auto) 3 % (0-3) Basophils (%) (Auto) 1 % (0-3) Neutrophils # (Auto) 5.3 x10^3uL (1.8-7.7) Lymphocytes # (Auto) 1.0 x10^3/uL (1.0-4.8) Monocytes # (Auto) 0.7 x10^3/uL (0.0-1.1) Eosinophils # (Auto) 0.2 x10^3/uL (0.0-0.7) Basophils # (Auto) 0.0 x10^3/uL (0.0-0.2) Sodium Level 142 mmol/L (136-145) Potassium Level 4.1 mmol/L (3.5-5.1) Chloride Level 105 mmol/L (98-107) Carbon Dioxide Level 29 mmol/L (21-32) Anion Gap 8 (6-14) Blood Urea Nitrogen 24 mg/dL (8-26) Creatinine 1.6 mg/dL (0.7-1.3) Estimated GFR (Cockcroft-Gault) 51.1 Glucose Level 112 mg/dL (70-99) Calcium Level 8.5 mg/dL (8.5-10.1) Microbiology 12/05/16 Blood Culture - Preliminary, Resulted NO GROWTH AFTER 1 DAY 12/05/16 Urine Culture - Preliminary, Resulted 12/05/16 Urine Culture Result 1 (ASHOK) - Preliminary, Resulted Medications Current Medications Aspirin (JoGuru Aspirin) 325 mg 1X ONCE PO Last administered on 12/05/16 12:13 ; Start 12/05/16 at 11:15; Stop 12/05/16 at 11:16; Status DC Furosemide (Lasix) 40 mg 1X ONCE IV Last administered on 12/05/16 12:30; Start 12/05/16 at 11:15; Stop 12/05/16 at 11:16; Status DC Albuterol/ Ipratropium (Duoneb) 3 ml 1X ONCE NEB Last administered on 12:02; Start 12/05/16 at 11:30; Stop 12/05/16 at 11:31; Status DC Ceftriaxone Sodium 50 ml @ 100 mls/hr 1X ONCE IV Last administered on 13:27; Start 12/05/16 at 13:00; Stop 12/05/16 at 13:29; Status DC Doxycycline Hyclate 100 mg/ Dextrose 100 ml @ 50 mls/hr 1X ONCE IV Last administered on 12/05/16 14:04; Start 12/05/16 at 13:00; Stop 12/05/16 at 14:59 ; Status DC Labetalol HCl (Normodyne) 20 mg PRN Q2HR PRN IVP HYPERTENSION, SEE COMMENTS Last administered on 12/05/16 15:00; Start 12/05/16 at 14:30 Clopidogrel Bisulfate (Plavix) 75 mg DAILYWBKFT PO Last administered on 09:59; Start 12/06/16 at 08:00 Metoprolol Tartrate (Lopressor) 50 mg BID PO Last administered on 12/06/16 09: 58; Start 12/05/16 at 21:00 Lisinopril (Prinivil) 5 mg DAILY PO Last administered on 12/06/16 09:59; Start 12/06/16 at 09:00 Amlodipine Besylate (Norvasc) 5 mg DAILY PO Last administered on 12/06/16 09: 58; Start 12/06/16 at 09:00 Atorvastatin Calcium (Lipitor) 40 mg QHS PO Last administered on 12/05/16 21: 12; Start 12/05/16 at 21:00 Amlodipine Besylate (Norvasc) 10 mg DAILY PO ; Start 12/06/16 at 09:00; Status UNV Clopidogrel Bisulfate (Plavix) 75 mg DAILYWBKFT PO ; Start 12/06/16 at 08:00; Status UNV Metoprolol Tartrate (Lopressor) 50 mg BID PO ; Start 12/05/16 at 21:00; Status UNV Nicotine (Nicoderm Cq 21mg) 1 patch PRN DAILY PRN TD SMOKING CESSATION; Start 12/05/16 at 15:30 Simvastatin (Zocor) 5 mg QHS PO Last administered on 12/05/16 21:13; Start at 21:00 Tamsulosin HCl (Flomax) 0.4 mg DAILY PO Last administered on 12/06/16 09:57; Start 12/06/16 at 09:00 Fenofibrate (Lofibra) 134 mg DAILY PO Last administered on 12/06/16 09:58; Start 12/06/16 at 09:00 Acetaminophen (Tylenol) 650 mg PRN Q6HRS PRN PO FEVER; Start 12/05/16 at 15:30 Ondansetron HCl (Zofran) 4 mg PRN Q6HRS PRN IV NAUSEA/VOMITING; Start 12/05/16 at 15:30 Morphine Sulfate 2 mg PRN Q2HR PRN IV PAIN; Start 12/05/16 at 15:30 Tramadol HCl (Ultram) 50 mg PRN Q6HRS PRN PO PAIN; Start 12/05/16 at 15:30 Hydralazine HCl (Apresoline) 10 mg PRN Q4HRS PRN IVP ELEVATED BP, SEE COMMENTS ; Start 12/05/16 at 15:30 Docusate Sodium (Colace) 100 mg PRN DAILY PRN PO CONSTIPATION; Start 12/05/16 at 15:30 Heparin Sodium (Porcine) (Heparin Sq) 5,000 unit Q8HRS SQ Last administered on 12/06/16 05:51; Start 12/05/16 at 22:00 Albuterol/ Ipratropium (Duoneb) 3 ml RTQID NEB Last administered on 12/06/16 11:28; Start 12/05/16 at 16:00 Albuterol Sulfate (Ventolin Neb Soln) 2.5 mg PRN Q2HR PRN NEB SHORTNESS OF BREATH; Start 12/05/16 at 15:45 Guaifenesin (Mucinex) 600 mg BID PO Last administered on 12/06/16 09:57; Start 12/05/16 at 21:00 Influenza Virus Vaccine Quadrival (Fluarix Quad [id number] Syringe) 0.5 ml ONCE ONCE VAX IM Last administered on 12/05/16 17:42; Start 12/05/16 at 17:00; Stop 12/05/16 at 17:01; Status DC Active Scripts Active Zocor (Simvastatin) 5 Mg Tablet 5 Mg PO QHS [Metoprolol Tartrate] 50 MG Tablet 50 Mg PO BID Plavix (Clopidogrel Bisulfate) 75 Mg Tablet 75 Mg PO DAILYWBKFT Reported NICODERM CQ 21mg (Nicotine) 1 Each Patch.td24 1 Patch TP DAILY PRN Metoprolol Tartrate 50 Mg Tablet 1 Tab PO BID Norvasc (Amlodipine Besylate) 10 Mg Tablet 10 Mg PO DAILY Fenofibrate 160 Mg Tablet 1 Tab PO DAILY Tamsulosin Hcl 0.4 Mg Cap.er.24h 0.4 Mg PO DAILY Vitals/I & O Vital Sign - Last 24 Hours 12/05/16 12/05/16 12/05/16 12/05/16 14:13 14:57 15:00 15:30 Temp 97.9 97.9 Pulse 82 75 90 78 Resp 24 18 B/P (MAP) 167/100 (122) 186/86 (119) 185/77 156/83 (107) Pulse Ox 96 97 95 O2 Delivery Nasal Cannula Nasal Cannula Nasal Cannula O2 Flow Rate 2.0 2.0 2.0 12/05/16 12/05/16 12/05/16 12/05/16 16:39 19:00 19:34 20:20 Temp 98.1 98.1 Pulse 92 Resp 22 B/P (MAP) 154/80 (104) Pulse Ox 95 96 O2 Delivery Nasal Cannula Nasal Cannula Nasal Cannula Nasal Cannula O2 Flow Rate 2.0 2.0 2.0 2.0 12/05/16 12/05/16 12/06/16 12/06/16 21:13 23:00 03:12 07:14 Temp 98.9 98.7 98.9 98.7 Pulse 96 96 85 Resp 20 18 B/P (MAP) 168/87 155/89 (111) 158/89 (112) Pulse Ox 95 94 98 O2 Delivery Nasal Cannula Nasal Cannula Nasal Cannula O2 Flow Rate 2.0 2.0 2.0 12/06/16 12/06/16 12/06/16 12/06/16 07:15 08:00 09:58 09:58 Temp 98.1 98.1 Pulse 80 87 87 Resp 18 B/P (MAP) 157/71 (99) 131/67 131/67 Pulse Ox 98 O2 Delivery Nasal Cannula Nasal Cannula O2 Flow Rate 2.0 2.0 12/06/16 12/06/16 12/06/16 12/06/16 09:59 10:30 10:38 11:29 Temp 99.0 99.0 Pulse 87 81 Resp 18 B/P (MAP) 131/67 148/70 (96) Pulse Ox 93 94 O2 Delivery Room Air Nasal Cannula Room Air O2 Flow Rate 2.0 Intake and Output 12/06/16 12/06/16 12/07/16 15:00 23:00 07:00 Intake Total 240 ml Output Total 150 ml Balance 90 ml KIM ARAUJO MD Dec 06, 2016 14:03
[2016-12-06 14:30] VITALS: BP 137/78
[2016-12-06] MEDS: NICOTINE 21MG PATCH. TD PRN (15:17)
[2016-12-06 19:00] VITALS: BP 183/88
[2016-12-06] MEDS: ATORVASTATIN CALCIUM 40 MG TABLET. PO SCH (20:52)
[2016-12-06] MEDS: SIMVASTATIN 10 MG TABLET PO SCH (20:53)
[2016-12-06 23:03] VITALS: BP 171/85
[2016-12-07 03:00] VITALS: BP 173/83
[2016-12-07 05:04] LABS: BASO % 1 % (0-3); EOS % 2 % (0-3); HEMOGLOBIN 11.8 g/dL (13.0-17.5); LYMPH # 1.1 x10^3/uL (1.0-4.8); LYMPH % 16 % (24-48); MEAN CORPUSCULAR HEMOGLOBIN 28 pg (25-35); MEAN CORPUSCULAR HGB CONC 32 g/dL (31-37); MEAN CORPUSCULAR VOLUME 88 fL (79-100); MONO % 12 % (0-9); NEUT % 70 % (31-73); PLATELET COUNT 225 x10^3/uL (140-400); RED BLOOD COUNT 4.23 x10^6/uL (4.30-5.70); RED CELL DISTRIBUTION WIDTH 14.3 % (11.5-14.5); WHITE BLOOD COUNT 6.9 x10^3/uL (4.0-11.0)
[2016-12-07 05:30] LABS: CALCIUM 8.8 mg/dL (8.5-10.1); CREATININE 1.6 mg/dL (0.7-1.3); GFR 51.1; POTASSIUM 4.1 mmol/L (3.5-5.1)
[2016-12-07] MEDS: HEPARIN PF for SUB-Q USE 5,000 UNIT/0.5 ML VIAL. SQ SCH ×2 (06:07→14:00)
[2016-12-07] MEDS: IPRATRPIUM/ALBUTEROL 0.5/2.5MG 3 ML NEBU. NEB SCH ×3 (06:56→14:57)
[2016-12-07 07:00] VITALS: BP 131/67
[2016-12-07] MEDS: CLOPIDOGREL BISULFATE 75 MG TABLET PO SCH (08:57)
[2016-12-07] MEDS: TAMSULOSIN 0.4 MG CAP.ER.24H. PO SCH (08:57)
[2016-12-07] MEDS: METOPROLOL TART IMMED RELEASE 50 MG TABLET. PO SCH (08:57)
[2016-12-07] MEDS: FENOFIBRATE,MICRONIZED 134 MG CAPSULE PO SCH (08:57)
[2016-12-07] MEDS: amLODIPine BESYLATE 5 MG TABLET PO SCH (08:58)
[2016-12-07] MEDS: LISINOPRIL 5 MG TABLET. PO SCH (08:58)
[2016-12-07] MEDS: NICOTINE 21MG PATCH. TD PRN (09:01)
[2016-12-07 10:49] VITALS: BP 165/72
--- NOTE | 2016-12-07 11:40 | PDOC ---
JOS ÉMIGUEL PARHAM AMBER 12/07/16 1140: CARDIO Progress Notes Date and Time Date of Service 12/07/16 Time of Evaluation 1030 Subjective Subjective: No Chest Pain, No Palpitations Vitals Vitals Vital Signs Date Time Temp Pulse Resp B/P (MAP) Pulse Ox O2 Delivery O2 Flow Rate FiO2 12/07/16 10:54 94 Nasal Cannula 1.5 12/07/16 10:49 98.0 84 18 165/72 (103) 98.0 Weight Weight [ ] Input and Output Intake and Output Intake and Output 12/08/16 07:00 Intake Total 200 ml Balance 200 ml Intake Oral 200 ml Laboratory Labs Laboratory Tests Test 12/07/16 04:25 White Blood Count 6.9 x10^3/uL (4.0-11.0) Red Blood Count 4.23 x10^6/uL (4.30-5.70) Hemoglobin 11.8 g/dL (13.0-17.5) Hematocrit 37.0 % (39.0-53.0) Mean Corpuscular Volume 88 fL (79-100) Mean Corpuscular Hemoglobin 28 pg (25-35) Mean Corpuscular Hemoglobin Concent 32 g/dL (31-37) Red Cell Distribution Width 14.3 % (11.5-14.5) Platelet Count 225 x10^3/uL (140-400) Neutrophils (%) (Auto) 70 % (31-73) Lymphocytes (%) (Auto) 16 % (24-48) Monocytes (%) (Auto) 12 % (0-9) Eosinophils (%) (Auto) 2 % (0-3) Basophils (%) (Auto) 1 % (0-3) Neutrophils # (Auto) 4.9 x10^3uL (1.8-7.7) Lymphocytes # (Auto) 1.1 x10^3/uL (1.0-4.8) Monocytes # (Auto) 0.8 x10^3/uL (0.0-1.1) Eosinophils # (Auto) 0.1 x10^3/uL (0.0-0.7) Basophils # (Auto) 0.0 x10^3/uL (0.0-0.2) Sodium Level 141 mmol/L (136-145) Potassium Level 4.1 mmol/L (3.5-5.1) Chloride Level 106 mmol/L (98-107) Carbon Dioxide Level 26 mmol/L (21-32) Anion Gap 9 (6-14) Blood Urea Nitrogen 26 mg/dL (8-26) Creatinine 1.6 mg/dL (0.7-1.3) Estimated GFR (Cockcroft-Gault) 51.1 Glucose Level 114 mg/dL (70-99) Calcium Level 8.8 mg/dL (8.5-10.1) Microbiology Micro Microbiology 12/05/16 Blood Culture - Preliminary, Resulted NO GROWTH AFTER 1 DAY 12/05/16 Urine Culture - Preliminary, Resulted 12/05/16 Urine Culture Result 1 (ASHOK) - Preliminary, Resulted Physical Exam HEENT: Neck Supple W Full Motion Chest: Symmetric LUNGS: Other (fine expiratroy wheezes) Heart: S1S2, RRR, other (distant heart tones) Abdomen: Soft N/T Extremities: Other (3+ bilateral LE edema with venous stasis changes) Neurology: alert, oriented, follow commands Assessment Assessment 1. AECOPD 2. Accelerated HTN 3. PVD 4. LE edema Recommendations Lower extremity elevation and compression stocking; discussed importance of compliance. Continue with secondary prevention Supportive care. May discharge from a CV standpoint and f/u in our office with Dr. Mars as scheduled. MIYA MARS MD 12/07/16 8987: CARDIO Progress Notes Plan Plan Patient seen and examined. Agree with above nurse practitioner note. I had a conversation today with the patient's about his dyspnea status as well as chronic comorbidities. He was strongly advised to quit smoking. I also advised him to follow-up with his previous vascular surgeon regarding peripheral arterial disease. We will follow-up with him in the office. JOSÉ MIGUEL PARHAM APRN Dec 07, 2016 11:40 MIYA MARS MD Dec 07, 2016 16:54
[2016-12-07] MEDS ORDERED: LISI-338 PO (12:06)
[2016-12-07] MEDS ORDERED: NICO1PAT21 TP (12:06)
[2016-12-07] MEDS ORDERED: AMLO5TAB2 PO (12:06)
[2016-12-07] MEDS ORDERED: NICOTINE 21MG PATCH. TD SCH (12:30)
--- NOTE | 2016-12-07 14:49 | PDOC3 ---
Discharge Summary [facility] Date of Admission: Dec 05, 2016 Discharge Date: Dec 07, 2016 Admitting Diagnosis dyspnea, with COPD, acute on chronic mild diastolic CHF exacerbation likely COPD with smoking grade 1 diastolic CHF bl leg edema with chf and PVD HTN urgency hld h/o CVA with mild left side weakness 05/2015 denies DM CKD3 tobaccoism morbid obesity left leg superficial wound with broken blister SIRS, not sepsis unsteady gait post CVA Problems: CONSULTS card Brief Hospital Course Patient is a 76 year old male with a history of HTN presents the ED complaining of shortness of breath and bl leg edema x2 months. pt is a heavy smoker, never diagnosed with COPD, on albuterol prn tho at home , no home o2, feels chronic cough with some sputum, feels sob, worse with exertion. He also has 2 months bl leg edema after saw card about 2 months ago, last Echo EF 55%, grade I diastolic dysfunction. Denies chest pain, fever, chills, N/V, diarrhea. noticed left leg has a blister which is broken , went to PCP today, was sent here. pt's leg edema better with lasix 40mg iv x1 in ER. and i talked to again why they came to ER, she said PCP worried about weight gain and the blister, which is broken and not infected. pt has no cough or sob during admission, agree to quit smoking, i asked them tofu with PCP and need pulm fo PFT. no further diuretics needed. new meds changed plz see MAY. ok to fu with wound care clinic. dc home with HH for unsteady gait dc time 35min. left leg has a 3cm superficial wound with broken blister General: Alert, Oriented X3, Cooperative, No acute distress Heart: Regular rate (SR), Normal S1, Normal S2, Other (distant heart sounds) Lungs: Clear, Other Abdomen: Normal bowel sounds, Soft, No tenderness Extremities: No cyanosis, Other (1+ bilateral LE pitting edema) Skin: No significant lesion Patient History: Family history: Cardiovascular disease (situation) G8 SISTER (CVA) 33 FATHER (CVA) Family history: Diabetes mellitus (situation) 33 FATHER Family history: Hypertension (situation) G8 SISTER 33 FATHER Family history: neoplasm - trachea/bronchus/lung (situation) G8 SISTER (does not remember what type of cancer sister had) No Family History of: Family history: Angina (situation) Family history: Asthma Family history: Autoimmune disease (situation) Family history: Blood disorder (situation) Family history: Breast disease (situation) Family history: Crohn's disease (situation) Family history: Depression (situation) Family history: Epilepsy (situation) Family history: Gallbladder disease (situation) Family history: Gastrointestinal disease (situation) Family history: Hemophilia (situation) Family history: Obesity (situation) Family history: Schizophrenia (situation) Family history: Sickle cell trait (situation) Family history: Suicide (situation) Malignant hyperthermia Sleep apnea Problems: Disposition home H CONDITION AT DISCHARGE: Improved Diet cardiac Scheduled Amlodipine Besylate (Amlodipine Besylate), 5 MG PO DAILY Clopidogrel Bisulfate (Plavix), 75 MG PO DAILYWBKFT Fenofibrate (Fenofibrate), 1 TAB PO DAILY, (Reported) Lisinopril (Lisinopril), 5 MG PO DAILY Metoprolol Tartrate (Metoprolol Tartrate), 1 TAB PO BID, (Reported) Simvastatin (Zocor), 5 MG PO QHS Tamsulosin Hcl (Tamsulosin Hcl), 0.4 MG PO DAILY, (Reported) Scheduled PRN Nicotine (NICODERM CQ 21mg), 1 PATCH TP DAILY PRN for SMOKING CESSATION Discontinued Medications Amlodipine Besylate (Norvasc), 10 MG PO DAILY, (Reported) [Metoprolol Tartrate], 50 MG PO BID Follow Up pcp in 2 weeks KIM ARAUJO MD Dec 07, 2016 14:49
== END 2016-12-07 15:00 | disposition home health service (06) | DRG 189 ==
LOC: ER 10:55 → 5 NORTH 12:39
PROVIDERS: ADMIT Internal Medicine; ATTEND Internal Medicine
DX: J96.00 Acute respiratory failure, unspecified whether with hypoxia or hypercapnia (principal); I50.33 Acute on chronic diastolic (congestive) heart failure; I69.354 Hemiplegia and hemiparesis following cerebral infarction affecting left non-dominant side; R65.10 Systemic inflammatory response syndrome (SIRS) of non-infectious origin without acute organ dysfunction; N18.3 Chronic kidney disease, stage 3 (moderate); J44.1 Chronic obstructive pulmonary disease with (acute) exacerbation; E66.01 Morbid (severe) obesity due to excess calories; I13.0 Hypertensive heart and chronic kidney disease with heart failure and stage 1 through stage 4 chronic kidney disease, or unspecified chronic kidney disease; I16.0 Hypertensive urgency; I73.9 Peripheral vascular disease, unspecified; Z68.35 Body mass index [BMI] 35.0-35.9, adult; E78.00 Pure hypercholesterolemia, unspecified; E78.5 Hyperlipidemia, unspecified; F17.210 Nicotine dependence, cigarettes, uncomplicated; I87.8 Other specified disorders of veins; I89.0 Lymphedema, not elsewhere classified; Z81.8 Family history of other mental and behavioral disorders; Z82.0 Family history of epilepsy and other diseases of the nervous system; Z82.3 Family history of stroke; Z82.49 Family history of ischemic heart disease and other diseases of the circulatory system; Z82.5 Family history of asthma and other chronic lower respiratory diseases; Z83.3 Family history of diabetes mellitus; Z91.19 Patient's noncompliance with other medical treatment and regimen; R26.81 Unsteadiness on feet
CPT/HCPCS: 36415; 71010; 80048; 80061; 80076; 81001; 82553; 82962; 83690; 83880; 84439; 84443; 84481; 84484; 85025; 85610; 87040; 87086; 90686; 93005; 93970; 94250; 94640; 96365; 96367; 96375; J0360; J0690; J3490; J7620; 97116; 99285-25